=== PATIENT | male | born 2005 | race Caucasian/White ===

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

== ENCOUNTER 2024-09-28 17:55 | Emergency (ER) | payer MEDICAID, OTHER, SELFPAY ==
[~2024-09-28] VITALS: Ht 167.6 cm; Wt 77.3 kg
[2024-09-28 18:28] LABS: BASO % 0.3 % (0.0-1.0); EOS # 0.2 10^3/uL (0.0-0.5); EOS % 2.5 % (0.0-3.0); HEMATOCRIT 45.5 % (42.0-52.0); HEMOGLOBIN 16.1 g/dl (13.5-17.5); LYMPH % 28.3 % (24.0-44.0); MEAN CORPUSCULAR HEMOGLOBIN 30.3 pg (27.0-33.0); MEAN CORPUSCULAR HGB CONC 35.4 g/dl (32.0-36.5); MEAN CORPUSCULAR VOLUME 85.5 fl (80.0-96.0); MONO # 0.5 10^3/uL (0.0-0.8); MONO % 6.8 % (2.0-8.0); NEUTROPHILS # 4.3 10^3/uL (1.5-8.5); PLATELET COUNT, AUTOMATED 128 10^3/uL (150-450); RED BLOOD COUNT 5.32 10^6/uL (4.30-6.10); WHITE BLOOD COUNT 6.9 10^3/uL (4.0-10.0)
[2024-09-28 18:57] LABS: BLOOD UREA NITROGEN 26 MG/DL (9-23); CALCIUM LEVEL 8.8 MG/DL (8.5-10.1); CARBON DIOXIDE LEVEL 26 MMOL/L (20-31); CHLORIDE LEVEL 103 MMOL/L (98-107); CREATININE FOR GFR 0.91 MG/DL (0.70-1.30); GLOMERULAR FILTRATION RATE > 90.0 (>60); GLUCOSE, FASTING 91 MG/DL (60-100); POTASSIUM SERUM 3.7 MMOL/L (3.5-5.1); SODIUM LEVEL 141 MMOL/L (136-145)
[2024-09-28 19:00] LABS: THYROID STIMULATING HORMONE 2.581 uIU/ML (0.48-4.17)
[2024-09-28 20:37] LABS: CK-MB VALUE MASS 2.3 NG/ML (<3.6)
[2024-09-28 20:39] LABS: ALBUMIN 4.5 G/DL (3.2-5.2); ALKALINE PHOSPHATASE 75 U/L (40-129); ALT/SGPT 57 U/L (7.0-40); AST/SGOT 31 U/L (<34); BILIRUBIN,DIRECT 0.1 MG/DL (<0.4); BILIRUBIN,TOTAL 0.6 MG/DL (0.3-1.2); MAGNESIUM LEVEL 1.8 MG/DL (1.8-2.4); PHOSPHORUS LEVEL 3.5 MG/DL (2.5-4.9); TOTAL PROTEIN 7.2 G/DL (5.7-8.2)
[2024-09-28 20:42] LABS: CPK CREATINE PHOSPHOKINASE 493 U/L (46-171); MB/CK RELATIVE INDEX 0.46 (< OR =4)
[2024-09-28] MEDS: NS (Normal Saline) 0.9% 1,000 ML IV SCH (20:44)
[2024-09-28 20:54] LABS: CK-MB VALUE MASS 2.4 NG/ML (<3.6)
[2024-09-28 20:58] LABS: CPK CREATINE PHOSPHOKINASE 549 U/L (46-171); MB/CK RELATIVE INDEX 0.43 (< OR =4)
[2024-09-28] MEDS ORDERED: HOME MED LIST COMPLETE! XX SCH (22:25)
[2024-09-28 22:51] VITALS: BP 110/67; TEMP 98; O2SAT 97
== END 2024-09-28 23:20 | disposition left against medical advice (07) ==
LOC: M ED 17:55 → EDBD 17:55 → M ED 23:20
DX: R55 Syncope and collapse (principal); Z53.9 Procedure and treatment not carried out, unspecified reason